=== PATIENT | female | born 1980 | race Caucasian/White ===

== ENCOUNTER 2016-11-08 21:15 | Emergency (ER) | payer MEDICAID ==
[~2016-11-08] VITALS: Ht 152.4 cm; Wt 56.8 kg
[2016-11-08] MEDS ORDERED: RANI150T7 PO (21:25)
[2016-11-08 21:40] VITALS: BP 124/81
[2016-11-08] MEDS ORDERED: IBUPROFEN 600 MG TABLET PO ONE (21:45)
[2016-11-08] MEDS ORDERED: DEXAMETHASONE SOD PHOS 4 MG/ML 5 ML VIAL IM ONE (21:45)
== END 2016-11-08 22:05 | disposition home or self-care (01) ==
LOC: EMS 21:20
DX: J02.9 Acute pharyngitis, unspecified (principal); K21.9 Gastro-esophageal reflux disease without esophagitis; Z79.899 Other long term (current) drug therapy
CPT/HCPCS: 96372; 99283; J1100

== ENCOUNTER 2023-08-08 20:28 | Emergency (ER) | payer MEDICAID, OTHER ==
[~2023-08-08] VITALS: Ht 162.6 cm; Wt 59.9 kg
[~2023-08-08 20:28] MED LIST: RANI150T7 PO
[2023-08-08 20:39] VITALS: TEMP 97.9
[2023-08-08 23:23] VITALS: BP 121/73; PULSE 70; RESP 20
[2023-08-09] MEDS: KETOROLAC TROMETHAMINE 60 MG/2 ML VIAL IM ONE (00:15)
[2023-08-09] MEDS: METHOCARBAMOL 500 MG TABLET PO ONE (00:15)
[2023-08-09] MEDS: HYDROCODONE/ACETAMINOPHEN 5-325 MG TABLET PO ONE (00:15)
[2023-08-09] MEDS ORDERED: HYDR-4723 PO (00:27)
[2023-08-09] MEDS ORDERED: IBUP-1554 PO (00:27)
[2023-08-09] MEDS ORDERED: METH-659 PO (00:27)
== END 2023-08-09 01:01 | disposition home or self-care (01) ==
LOC: EMS 20:44
DX: S39.012A Strain of muscle, fascia and tendon of lower back, initial encounter (principal); X58.XXXA Exposure to other specified factors, initial encounter; Y93.89 Activity, other specified; Y92.89 Other specified places as the place of occurrence of the external cause; Y99.0 Civilian activity done for income or pay
CPT/HCPCS: 99283; 96372; J1885; 96365